=== PATIENT | male | born 1945 | race Two or more races ===

== ENCOUNTER 2017-09-13 20:50 | Emergency (ER) | payer MEDICARE, MEDICAID ==
[~2017-09-13] VITALS: Ht 160 cm; Wt 67.6 kg
[~2017-09-13 20:50] MED LIST: AMLO10TA PO; APIX5TAB3 PO; ASPI-611 PO; ATOR20TA PO; CARV3.122 PO; CITA20TA19 PO; DOCU-28 PO; LISI40TA4 PO; METF-517 PO; MULT-1085 PO
[2017-09-13] MEDS ORDERED: acetaminophen 325mg tablet PO ONE (22:00)
[2017-09-13 23:28] VITALS: BP 176/99
== END 2017-09-14 02:02 | disposition home or self-care (01) ==
LOC: ER 20:50
DX: M23.91 Unspecified internal derangement of right knee (principal); M19.071 Primary osteoarthritis, right ankle and foot; G93.89 Other specified disorders of brain; E78.00 Pure hypercholesterolemia, unspecified; I10 Essential (primary) hypertension; E11.9 Type 2 diabetes mellitus without complications; I48.91 Unspecified atrial fibrillation; Z86.73 Personal history of transient ischemic attack (TIA), and cerebral infarction without residual deficits; Z79.82 Long term (current) use of aspirin; Z79.84 Long term (current) use of oral hypoglycemic drugs; Z79.899 Other long term (current) drug therapy; W18.39XA Other fall on same level, initial encounter; Y93.89 Activity, other specified; Y92.89 Other specified places as the place of occurrence of the external cause; Y99.8 Other external cause status
CPT/HCPCS: 29505; 70450; 73564; 99284